=== PATIENT | female | born 1940 | race Caucasian/White ===

== ENCOUNTER 2019-07-14 17:51 | Emergency (ER) | payer MEDICARE, SELFPAY ==
--- NOTE | ~2019-07-14 | XR_ITS ---
XR chest 1V portable DATE: 07/14/2019 19:17 INDICATION: Chest pain, generalized cramping TECHNIQUE: Portable upright AP chest on 07/14/2019 at 1914 hours COMPARISON: 01/17/2018 PA and lateral chest FINDINGS: Probably calcified bilateral breast implants. Bilateral hyperinflation. No pulmonary infiltrate or consolidation is evident. Heart size is within n ormal range. There is aortic calcification and mild tortuosity. No pleural effusion or pulmonary vasc ular congestion or pneumothorax. Surgical clips, right upper quadrant, consistent with cholecystectomy. Osteopenia. Status post anterior cervical spine surgical fusion. IMPRESSION: Bilateral hyperinflation; no active cardiopulmonary disease or significant change since 1 Reviewed, dictated and finalized at location A. IMPRESSION: Bilateral hyperinflation; no active cardiopulmonary disease or sign ificant change since 01/17/2018
[2019-07-14 18:05] VITALS: BP 184/97; PULSE 90; RESP 18; TEMP 36.5; O2SAT 97
[2019-07-14 18:08] VITALS: PULSE 90
[2019-07-14 18:18] LABS: Basophils Percent Auto 0.4 % (0.2-1.2); Eosinophils Absolute Auto 0.1 K/mm3 (0-0.3); Eosinophils Percent Auto 0.8 % (0-4.4); Hematocrit 53.1 % (37.0-47.0); Hemoglobin 17.4 g/dL (12.0-15.0); Immature Granulocyte Absolute 0.03 K/mm3 (0.00-0.031); Immature Granulocyte Percent A 0.3 % (0-0.5); Lymphocytes Absolute Auto 2.58 K/mm3 (0.9-3.2); Lymphocytes Percent Auto 24.2 % (18.3-44.2); Mean Corpuscular HGB Conc 32.8 g/dl (32-36); Mean Corpuscular Hemoglobin 29.3 pg (26-34); Mean Corpuscular Volume 89.4 fl (80-100); Mean Platelet Volume 9.8 fl (7.4-10.4); Monocytes Absolute Auto 0.7 K/mm3 (0.1-0.6); Monocytes Percent Auto 6.2 % (2.6-8.5); Neutrophils Absolute Auto 7.3 K/mm3 (1.3-6.7); Neutrophils Percent Auto 68.1 % (45.5-73.1); Platelet Count Result 244 k/mm3 (150-375); Red Blood Count 5.94 M/mm3 (4.2-5.4); Red Cell Distribution Width 13.2 % (11.5-14.5); White Blood Count 10.7 K/mm3 (4.5-10.0)
[2019-07-14 18:22] LABS: Add Urine Microscopic? YES; Appearance Urine Clear (Clear); Bacteria Urine Trace /hpf; Bilirubin Urine Negative (Negative); Blood Urine Negative (Negative); Color Urine Yellow (Yellow); Glucose Urine UA Negative (Negative); Ketones Urine Negative (Negative); Leukocyte Esterase Ur 2+ LEU/UL (Negative); Mucus Urine Rare /lpf; Nitrate Urine Negative (Negative); Protein Urine 1+ mg/dL (Negative); RBC Urine 0-2 /hpf (0-2); Specific Grav Ur 1.011 (1.001-1.035); Squamous Epithelial Cell Urine Rare /hpf (Few); Urobilinogen Urine Negative mg/dL (<2.0)
[2019-07-14 18:31] LABS: Alanine Aminotransferase 25 U/L (4-35); Albumin Level 5.2 g/dL (3.5-5.1); Alkaline Phosphatase 86 U/L (38-126); Aspartate Amino Transferase 34 U/L (14-36); Bilirubin,Total 0.7 mg/dL (0.2-1.3); Blood Urea Nitrogen 15 mg/dL (7-17); Calcium 9.9 mg/dL (8.4-10.2); Carbon Dioxide 27 mmol/L (22-30); Chloride 102 mmol/L (98-107); Estimated CRCL calculation 37 ml/min; Estimated Glomerular Filt Rate > 60; Glucose 106 mg/dL (65-105); Lipase 288 U/L (23-300); Potassium 4.2 mmol/L (3.4-5.0); Sodium 139 mmol/L (137-145)
--- NOTE | 2019-07-14 18:42 | ED.GENADULT ---
HPI - General Adult General Chief complaint: Abdominal Pain <Hai Stover PA-C - Last Filed: 07/14/19 19:30> Stated complaint: cramping all over <Hai Stover PA-C - Last Filed: 07/14/19 19:30> Time Seen by Provider: 07/14/19 18:09 <Hai Stover PA-C - Last Filed: 07/14/19 19:30> History of Present Illness HPI narrative: Patient is a 78-year-old female who presents to emergency department for evaluation of cramping in the upper extremities and abdomen that began today. Patient notes intermittent cramping. Patient notes that her urine is darker than normal. Patient denies any URI symptoms chest pain dyspnea vomiting diarrhea. On arrival patient resting comfortably in the room in no distress has not taken anything for symptoms <Hai Stover PA-C - Last Filed: 07/14/19 19:30> Related Data Allergies/adverse reactions: Allergies Allergy/AdvReac Type Severity Reaction Status Date / Time tetracycline Allergy Unknown Unknown Verified 07/14/19 18:09 <Hai Stover PA-C - Last Filed: 07/14/19 19:30> Review of Systems Review of Systems: All systems reviewed & are unremarkable except as noted in HPI and below <Hai Stover PA-C - Last Filed: 07/14/19 19:30> [facility] Past Medical History Medical History: Medical History (Updated 07/14/19 @ 19:17 by Hai Stover PA-C) Arthritis <Hai Stover PA-C - Last Filed: 07/14/19 19:30> Family History Family History: Family History (Updated 03/10/17 @ 13:45 by DOCTOR UNKNOWN) Mother Patient's mother is , Onset Age: 87 Sibling Patient's brother is , Onset Age: 67 Father Cerebrovascular accident, Onset Age: 80 <Hai Stover PA-C - Last Filed: 07/14/19 19:30> Social History Social History: Social History Smoking status: Former smoker Smoking end date: 03/20/17 Alcohol intake: never Gender identity (if verbalized by the patient): Female <Hai Stover PA-C - Last Filed: 07/14/19 19:30> Exam Narrative: Exam Narrative: GENERAL: Well-appearing, well-nourished, and in no acute distress. HEAD: Normocephalic, atraumatic. EYES: PERRLA and EOMI. ENT: Nares clear, no rhinorrhea or epistaxis. Mucous membranes moist. NECK: Supple. No adenopathy or masses. CHEST: Clear to auscultation. No respiratory distress. No wheezes rales or rhonchi HEART: Regular rate and rhythm. No murmur heard. Normal peripheral pulses. ABDOMEN: Soft, nontender, nondistended EXTREMITIES: Normal range of motion. No edema. SKIN: Warm, dry, no rash. NEURO: No focal deficits. Alert and oriented x3. Cranial nerves II through XII grossly intact PSYCH: Normal mood and affect. <UDAY Tineo Last Filed: 07/14/19 19:30> Course Course Emergency Course: Patient in the room at this time in no distress aware of case findings treatment plan and diagnosis <UDAY Tineo Last Filed: 07/14/19 19:30> Vital Signs Vital signs: Vital Signs Temperature 97.7 F 07/14/19 18:05 Pulse Rate 90 07/14/19 18:05 Respiratory Rate 18 07/14/19 18:05 Blood Pressure 184/97 H 07/14/19 18:05 Pulse Oximetry 97 07/14/19 18:05 Temperature 97.7 F 07/14/19 18:05 Pulse Rate 71 07/14/19 20:20 Respiratory Rate 21 H 07/14/19 20:20 Blood Pressure 134/78 07/14/19 20:20 Pulse Oximetry 97 07/14/19 20:20 <UDAY Tineo Last Filed: 07/14/19 19:30> Vital Signs Temperature 97.7 F 07/14/19 18:05 Pulse Rate 90 07/14/19 18:05 Respiratory Rate 18 07/14/19 18:05 Blood Pressure 184/97 H 07/14/19 18:05 Pulse Oximetry 97 07/14/19 18:05 Temperature 97.7 F 07/14/19 18:05 Pulse Rate 71 07/14/19 20:20 Respiratory Rate 21 H 07/14/19 20:20 Blood Pressure 134/78 07/14/19 20:20 Pulse Oximetry 97 07/14/19 20:20 <Denise Werner MD
[2019-07-14] MEDS: SODIUM CHLORIDE 0.9% IV 1,000 ML 999 ML IV CONT (19:02)
[2019-07-14 19:50] VITALS: BP 167/70; PULSE 68; RESP 19; O2SAT 96
[2019-07-14 20:20] VITALS: BP 134/78; PULSE 71; RESP 21; O2SAT 97
== END 2019-07-14 20:20 | disposition home or self-care (01) ==
PROVIDERS: Emergency Provider Emergency Medicine; PCP Physician Assistant
DX: N39.0 Urinary tract infection, site not specified (principal); M62.838 Other muscle spasm
CPT/HCPCS: 36415; 71045; 80053; 81001; 83690; 83735; 85025; 87086; 87088; 96365; 96367; 99284; J0131; J0696; J7030

== ENCOUNTER 2019-08-28 10:21 | Emergency (ER) | payer MEDICARE, SELFPAY ==
[2019-08-28] VITALS (8 sets, daily range): BP systolic 114–208; BP diastolic 74–99; PULSE 66–87; RESP 13–18; TEMP 36.6; O2SAT 95–100
--- NOTE | ~2019-08-28 | XR_ITS ---
XR chest 2V 08/28/2019 10:50 Indication: Shortness of breath and cough Procedure: 2 view chest Comparison: Comparison to multiple prior studies sequentially, with oldest reviewed study dated 2017. Findings: Heart size normal. No focal air space disease, pulmonary edema, pleural effusion or suspect ed pneumothorax. There are calcified breast implants. There is atherosclerosis and ectasia of the aor ta. There are cholecystectomy clips. Impression: 1: No acute cardiopulmonary disease. Reviewed, dictated and finalized at location A. Impression: 1: No acute cardiopulmonary disease.
--- NOTE | ~2019-08-28 | CT_ITS ---
EXAMINATION: CTA BRAIN/CAROTID DATE: 08/28/2019 14:18 INDICATION: Head pain behind right ear radiating down the neck. Weakness. TECHNIQUE: Computed tomographic angiography (CTA) of the head and neck was performed with 100 mL Omni paque-350 intravenous contrast. Multiplanar reconstructions and maximum intensity projection 3D-recon structions of the carotid arteries and of the intracranial arteries were created by the technologist on a separate workstation. Precontrast CT of the head was also obtained. Automated exposure control and iterative reconstruction technique were employed.The dose-length product was 1520.58 mGy-cm. COMPARISON: Head CT dated 08/26/2016 FINDINGS: Carotid arteries: There is a small amount of atherosclerotic plaque with 0% stenosis of the right carotid bulb relative to normal distal artery lumen diameter (NASCET criteria). There is 10% stenosis of the left carotid bulb relative to normal distal artery lumen diameter. Mild atherosclerotic plaque at the normal calib er aortic arch. No evident atherosclerotic plaque or stenosis along the extracranial vertebral arteri es. Cervical soft tissues are unremarkable. Mild emphysema. Solidly fused C4-C7 anterior spinal fusio n with anterior plate and screw fixation, C5 corpectomy with interbody strut graft. Bilateral severe upper cervical facet osteoarthritis. Mild central canal stenosis related to a disc extrusion at C3-C4 and due to hypertrophic change at the level of the fused C6-C7 disc space. Moderate disc height loss at C3-C4 and severe disc height loss at C7-T1 and T2-T3 through T4-T5. Head: No acute intracranial hemorrhage, acute infarction or abnormal extra axial fluid collection. There is moderate scattered white matter hypoattenuation consistent with chronic small vessel ischemic diseas e. Ventricles are normal and symmetric. No mass/mass effect. The orbits, paranasal sinuses and mastoi d air cells are normal. No abnormally enhancing lesions identified. Intracranial arteries Small out of atherosclerotic plaque with no hemodynamically significant stenosis in at the left verte bral artery and bilateral carotid siphons. No evident plaque in the right vertebral or basilar arteri es. There are no aneurysms identified. The right P1 and bilateral A1 segments are patent. The left po sterior cerebral artery is supplied via a patent left posterior communicating artery. Cerebral arteri al arborization appears symmetric. IMPRESSION: 1. 0% stenosis of the right carotid bulb relative to normal distal artery lumen diameter (NASCET crit eria). 2. 10% stenosis of the left carotid bulb relative to normal distal artery lumen diameter. 3. Moderate scattered white matter hypoattenuation consistent with chronic small vessel ischemic dise ase. No acute intracranial process. 4. Mild atherosclerotic plaque without hemodynamically significant stenosis at the bilateral carotid siphons and at the left vertebral artery otherwise unremarkable cerebral angiogram. Reviewed, dictated and finalized at location A. IMPRESSION: 1. 0% stenosis of the right carotid bulb relative to normal distal artery lumen diameter (NASCET criteria). 2. 10% stenosis of the left carotid bulb relative to normal distal artery lumen diameter. 3. Moderate scattered white matter hypoattenuation consistent with chronic smal l vessel ischemic disease. No acute intracranial process. 4. Mild atherosclerotic plaque without hemodynamically significant stenosis at the bilateral carotid siphons and at the left vertebral artery otherwise unrema rkable cerebral angiogram.
--- NOTE | 2019-08-28 10:35 | ECG_ITS ---
Measurements Intervals [place] Rate: 71 P: 51 [place]: 162 QRS: -67 QRSD: 105 T: 34 QT: 406 QTc: 444 Interpretive Statements SINUS RHYTHM INCOMPLETE RIGHT BUNDLE BRANCH BLOCK LEFT ANTERIOR FASCICULAR BLOCK BASELINE ARTIFACT- V4 ABNORMAL ECG Electronically Signed On 08-28-2019 11:12:53 CDT by Brad Davis D.O.
[2019-08-28 10:51] LABS: Basophils Percent Auto 0.6 % (0.2-1.2); Eosinophils Absolute Auto 0.2 K/mm3 (0-0.3); Eosinophils Percent Auto 2.3 % (0-4.4); Hematocrit 47.8 % (37.0-47.0); Hemoglobin 15.8 g/dL (12.0-15.0); Immature Granulocyte Absolute 0.02 K/mm3 (0.00-0.031); Immature Granulocyte Percent A 0.3 % (0-0.5); Lymphocytes Absolute Auto 1.44 K/mm3 (0.9-3.2); Lymphocytes Percent Auto 21.8 % (18.3-44.2); Mean Corpuscular HGB Conc 33.1 g/dl (32-36); Mean Corpuscular Hemoglobin 29.6 pg (26-34); Mean Corpuscular Volume 89.5 fl (80-100); Mean Platelet Volume 9.6 fl (7.4-10.4); Monocytes Absolute Auto 0.4 K/mm3 (0.1-0.6); Monocytes Percent Auto 5.7 % (2.6-8.5); Neutrophils Absolute Auto 4.6 K/mm3 (1.3-6.7); Neutrophils Percent Auto 69.3 % (45.5-73.1); Platelet Count Result 224 k/mm3 (150-375); Red Blood Count 5.34 M/mm3 (4.2-5.4); Red Cell Distribution Width 13.2 % (11.5-14.5); White Blood Count 6.6 K/mm3 (4.5-10.0)
--- NOTE | 2019-08-28 10:56 | PC.NURSE ---
PT STATES THAT SHE DOES NOT HAVE A LIST OF HER HOME MEDICATIONS AND DOES NOT KNOW WHAT SHE TAKES.
[2019-08-28 11:04] LABS: Blood Urea Nitrogen 15 mg/dL (7-17); Calcium 9.1 mg/dL (8.4-10.2); Carbon Dioxide 27 mmol/L (22-30); Chloride 106 mmol/L (98-107); Estimated CRCL calculation 46 ml/min; Estimated Glomerular Filt Rate > 60; Glucose 102 mg/dL (65-105); Potassium 4.1 mmol/L (3.4-5.0); Sodium 139 mmol/L (137-145)
--- NOTE | 2019-08-28 11:47 | PC.NURSE ---
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 PT AMBULATED TO THE BATHROOM WITH ASSISTANCE, I INFORMED PT THAT YELLING IS NOT APPROPRIATE, AND THAT WE ARE WORKING QUICKLY POSSIBLE TO GET HER TO THE RESTROOM. PT STATES SHE UNDERSTANDS AND WILL USE THE CALL LIGHT SOONER NEXT TIME. RESTING QUIETLY IN BED, WILL CONTINUE TO MONITOR.
--- NOTE | 2019-08-28 11:55 | PC.NURSE ---
PT UNABLE TO GIVE UA. ASKING FOR MORE TIME.
--- NOTE | 2019-08-28 11:55 | PC.NURSE ---
Called lab to add on Pt INR PTT, d-dimer, Trop I baseline, CMP, BNP.
[2019-08-28 12:10] LABS: Prothrombin Time 12.8 Seconds (11.1-14.7)
[2019-08-28 12:11] LABS: Partial Thromboplastin Time 25.7 SECONDS (22.3-36.8)
[2019-08-28 12:13] LABS: D Dimer 0.38 ug/mL (<0.48)
[2019-08-28 12:20] LABS: Alanine Aminotransferase 14 U/L (4-35); Albumin Level 4.5 g/dL (3.5-5.1); Alkaline Phosphatase 71 U/L (38-126); Aspartate Amino Transferase 26 U/L (14-36); Bilirubin,Total 0.5 mg/dL (0.2-1.3)
[2019-08-28 12:28] LABS: Troponin I < 0.012 ng/mL (0.000-0.034)
[2019-08-28 12:29] LABS: NT Pro B Type Natriuretic Pept 147 PG/ML (5-100)
--- NOTE | 2019-08-28 12:34 | ED.SOB ---
HPI - SOB/Dyspnea General Chief Complaint: Shortness of Breath/Dyspnea <Hai Stover PA-C - Last Filed: 08/28/19 15:28> Stated Complaint: diff breathing <Hai Stover PA-C - Last Filed: 08/28/19 15:28> Time Seen by Provider: 08/28/19 11:18 <Hai Stover PA-C - Last Filed: 08/28/19 15:28> Source: patient <Hai Stover PA-C - Last Filed: 08/28/19 15:28> Mode of arrival: ambulatory <Hai Stover PA-C - Last Filed: 08/28/19 15:28> Limitations: no limitations <Hai Stover PA-C - Last Filed: 08/28/19 15:28> History of Present Illness HPI Narrative: Patient is a 79-year-old female who presents to emergency department for evaluation of shortness of breath right-sided neck pain and generalized myalgias arthralgias for the last 5 days denies injury or trauma does note history of urinary frequency and urgency. Patient lives at home by herself has not taken anything for her symptoms. Patient on arrival resting comfortably in the room denies chest pain vomiting diarrhea fever. Patient denies sick contacts or similar occurrence in the past <Hai Stover PA-C - Last Filed: 08/28/19 15:28> Related Data Allergies/Adverse Reactions: Allergies Allergy/AdvReac Type Severity Reaction Status Date / Time tetracycline Allergy Unknown Unknown Verified 07/14/19 18:09 <Hai Stover PA-C - Last Filed: 08/28/19 15:28> Review of Systems Review of Systems: All systems reviewed & are unremarkable except as noted in HPI and below <Hai Stover PA-C - Last Filed: 08/28/19 15:28> PMF[facility] Past Medical History Medical History: Medical History Arthritis <Hai Stover PA-C - Last Filed: 08/28/19 15:28> Family History Family History: Family History Mother Patient's mother is , Onset Age: 87 Sibling Patient's brother is , Onset Age: 67 Father Cerebrovascular accident, Onset Age: 80 <Hai Stover PA-C - Last Filed: 08/28/19 15:28> Social History Social History: Social History Smoking status: Former smoker Smoking end date: 03/20/17 Alcohol intake: never Gender identity (if verbalized by the patient): Female <Hai Stover PA-C - Last Filed: 08/28/19 15:28> Exam Narrative: Exam Narrative: GENERAL: Well-appearing, well-nourished, and in no acute distress. HEAD: Normocephalic, atraumatic. EYES: PERRLA and EOMI. ENT: Nares clear, no rhinorrhea or epistaxis. Mucous membranes moist. Oropharynx without tonsillar hypertrophy exudate or other lesions. Bilateral TMs pearly brock nonbulging NECK: Supple. No adenopathy or masses. No carotid bruits or JVD CHEST: Clear to auscultation. No respiratory distress. No wheezes rales or rhonchi HEART: Regular rate and rhythm. No murmur heard. Normal peripheral pulses. ABDOMEN: Soft, nontender, nondistended EXTREMITIES: Normal range of motion. No edema. Slight tenderness of the right paraspinal cervical musculature SKIN: Warm, dry, no rash. NEURO: No focal deficits. Alert and oriented x3. Cranial nerves II through XII grossly intact. Normal speech. Normal gait. No meningismus no nuchal rigidity PSYCH: Normal mood and affect. <Hai Stover PA-C - Last Filed: 08/28/19 15:28> Course Course Emergency Course: Patient in the room aware of case findings treatment plan and diagnosis agreeing to follow-up with her primary care doctor for further evaluation of her blood pressure readings and findings in the emergency department patient agreeing with this plan and is aware of the recommendations of her primary care <Hai Stover PA-C - Last Filed: 08/28/19 15:28> Consultations Consultation #1: Discussed case with patient's primary care who would like
[2019-08-28 12:42] LABS: Add Urine Microscopic? NO; Appearance Urine Clear (Clear); Bilirubin Urine Negative (Negative); Blood Urine Negative (Negative); Color Urine Straw (Yellow); Glucose Urine UA Negative (Negative); Ketones Urine Negative (Negative); Leukocyte Esterase Ur Negative LEU/UL (Negative); Nitrate Urine Negative (Negative); Protein Urine Negative (Negative); Specific Grav Ur 1.014 (1.001-1.035); Urobilinogen Urine Negative mg/dL (<2.0)
--- NOTE | 2019-08-28 13:49 | PC.NURSE ---
while in another room, pt yelling out to nurse complaining that we are not doing anything for her neck pain. I explained to pt that she did not need to yell, and that I and the provider had just been in the room speaking with her about the pain, and that I was waiting on ibuprofen to be delivered from pharmacy. pt throwing her hands on the bed, stating that if we are not going to help her then she will just leave, this is ridiculous, you need to address my pain. i reminded pt that we did give her 1G tylenol IVP and a [place], I told pt that I would get pain medication noa. CT then entered room and took pt for scan of head and neck.
--- NOTE | 2019-08-28 14:04 | PC.NURSE ---
PT STILL IN CT, STILL AWAITING MEDICATION FROM PHARMACY, JUSTIN STATES SHE WILL TUBE IT UP.
--- NOTE | 2019-08-28 14:08 | PC.NURSE ---
PT BACK FROM CT, AMBULATED TO BATHROOM, STEADY GAIT. IBUPROFEN HAS ARRIVED FROM PHARMACY AT THIS TIME. AWAITING PT TO FINISH IN BATHROOM AND THEN I WILL MEDICATE PT PER PROVIDER ORDER.
[2019-08-28] MEDS: IBUPROFEN IV 400 MG in SODIUM CHLORIDE 0.9% IV 100 ML 200 MG IVPB (14:10)
--- NOTE | 2019-08-28 14:30 | PC.NURSE ---
PA INFORMED THAT PT IS NOW COMPLAINING OF HEADACHE. NO NEW ORDERS.
[2019-08-28] MEDS: hydrALAZINE HCL 20 MG/ML VIAL 10 MG IV PUSH (14:43)
--- NOTE | 2019-08-28 15:25 | PC.NURSE ---
ERP INFORMED OF PT CURRENT BP AND STILL COMPLAINTS OF TEMPORAL GOMEZ. PA STATES THAT HE HAS READ THE TEST RESULTS, SPOKEN TO THE PRIMARY AND WILL NOT BE GIVING ANY MORE MEDICATIONS. HE IS WORKING ON GETTING PT D/C. NO NEW ORDERS.
--- NOTE | 2019-08-28 15:30 | PC.NURSE ---
I EXPLAINED THAT PA IS PREPARING TO D.C PT, PT IMMEDIATELY BECOMES HOSTILE TOWARDS MYSELF, HOPS OUT OF BED AND THROWS CURTAIN OUT OF HER WAY, CUSSING AT STAFF ABOUT HOW RIDICULOUS THIS FUCKING IS.
[2019-08-28 15:43] LABS: Troponin I < 0.012 ng/mL (0.000-0.034)
== END 2019-08-28 15:39 | disposition home or self-care (01) ==
PROVIDERS: Emergency Medicine Emergency Medical Services; Emergency Provider Emergency Medicine; PCP Physician Assistant
DX: R51 Headache (principal); R03.0 Elevated blood-pressure reading, without diagnosis of hypertension; I45.2 Bifascicular block; M19.90 Unspecified osteoarthritis, unspecified site
CPT/HCPCS: 36415; 70496; 70498; 71046; 80048; 80076; 81003; 83880; 84484; 85025; 85380; 85610; 85730; 93005; 96365; 96375; 99284; A9270; J0131; J0360; Q9967

== ENCOUNTER 2019-10-08 07:37 | Outpatient (CLI) | payer MEDICARE, SELFPAY ==
--- NOTE | ~2019-10-08 | CT_ITS ---
EXAMINATION: CT abdomen pelvis w con DATE: 10/08/2019 08:34 INDICATION: Upper abdominal pain TECHNIQUE: Computed tomography (CT) of the abdomen and pelvis was performed with 100 cc Omnipaque 350 intravenous contrast. Automated exposure control and iterative reconstruction technique were employe d. Exam dose: 204.28 mGy-cm total exam DLP. COMPARISON: 11/08/2016 CT abdomen pelvis. FINDINGS: There is discoid atelectasis and/or scarring of the lower lobes. Normal heart size. No pe ricardial or pleural effusion. Status post cholecystectomy. The common bile duct measures up to 7.8 mm diameter, there is mild intra hepatic bile duct dilatation. The bile duct prominence is likely secondary to cholecystectomy; consi debbie correlation with serum bilirubin level. No hepatic or pancreatic or splenic space occupying mass lesion is detected. There is a left adrenal gland 12 x 13.5 mm mass. There is a similar size right adrenal gland mass. If there is no history of any primary malignancy, these are most likely adrenal adenomas. There is bilateral renal atrophy and mild scarring. Approximately 6.5 mm and 5 mm right renal probable cysts. There is extensive calcification of the abdominal aorta, left renal artery and iliac and femoral german haim. There is mild fusiform dilatation of the infrarenal abdominal aorta but abdominal aortic diamet er is within normal range. No intraperitoneal or retroperitoneal or pelvic mass lesion or adenopathy or ascites. There is diffuse moderate thickening of the urinary bladder. There is a prominent of fecal material in the rectal vault. Diverticulosis of the colon; no CT eviden ce of diverticulitis. No bowel obstruction, bowel wall thickening, pneumatosis or intraperitoneal free air is evident. The appendix is not identified. Diffuse osteopenia. There is degenerative disc disease particularly at L1-2, L2-3, L3-4. No suspiciou s osteolytic or osteoblastic lesions are noted. IMPRESSION: Mild intrahepatic and extra hepatic bile duct dilatation, likely secondary to cholecyste ctomy; consider correlation with serum bilirubin, liver function tests. The bile duct prominence is s table compared to 11/08/2016 Bilateral adrenal masses; in the absence of any known primary malignancy, these are most likely adren al adenomas. These appear unchanged since 11/08/2016 Bilateral left greater than right renal atrophy and mild scarring Small right renal cysts Atherosclerosis Diverticulosis of the colon Multilevel degenerative disc disease of the lumbar spine Reviewed, dictated and finalized at Location A. Reviewed, dictated and finalized at location B. IMPRESSION: Mild intrahepatic and extra hepatic bile duct dilatation, likely s econdary to cholecystectomy; consider correlation with serum bilirubin, liver f unction tests. The bile duct prominence is stable compared to 11/08/2016 Bilateral adrenal masses; in the absence of any known primary malignancy, these are most likely adrenal adenomas. These appear unchanged since 11/08/2016 Bilateral left greater than right renal atrophy and mild scarring Small right renal cysts Atherosclerosis Diverticulosis of the colon Multilevel degenerative disc disease of the lumbar spine
--- NOTE | ~2019-10-08 | XR_ITS ---
XR hip LT min 2V DATE: 10/08/2019 08:09 INDICATION: Left hip pain TECHNIQUE: AP, lateral and cross table lateral views COMPARISON: None FINDINGS: There is chondrocalcinosis of the left hip. No fracture or dislocation, periosteal reactio n or bone destruction. No evidence of avascular necrosis. Left hip joint space is well preserved. There is mild femoral artery calcification. IMPRESSION: Left hip chondrocalcinosis Reviewed, dictated and finalized at location B. IMPRESSION: Left hip chondrocalcinosis
[2019-10-08 08:21] LABS: Estimated Glomerular Filt Rate > 60
[2019-10-08 09:06] LABS: Add Urine Microscopic? NO; Appearance Urine Clear (Clear); Bilirubin Urine Negative (Negative); Blood Urine Negative (Negative); Color Urine Straw (Yellow); Glucose Urine UA Negative (Negative); Ketones Urine Negative (Negative); Leukocyte Esterase Ur Negative LEU/UL (NEGATIVE); Nitrate Urine Negative (Negative); Protein Urine Negative (Negative); Urobilinogen Urine Negative mg/dL (<2.0)
[2019-10-08 09:23] LABS: Alanine Aminotransferase 22 U/L (4-35); Albumin Level 4.3 g/dL (3.5-5.1); Alkaline Phosphatase 76 U/L (38-126); Aspartate Amino Transferase 34 U/L (14-36); Bilirubin,Total 0.7 mg/dL (0.2-1.3); Blood Urea Nitrogen 13 mg/dL (7-17); Carbon Dioxide 30 mmol/L (22-30); Chloride 98 mmol/L (98-107); Cholesterol 207 mg/dL (0-200); Estimated Glomerular Filt Rate > 60; Glucose 105 mg/dL (65-105); HDL Direct 70 mg/dL; Potassium 3.7 mmol/L (3.4-5.0); Sodium 136 mmol/L (137-145); Triglycerides 110 mg/dL (<150)
[2019-10-08 09:25] LABS: Specific Grav Ur 1.045 (1.001-1.035)
[2019-10-08 09:34] LABS: LDL Cholesterol Direct 100 mg/dL
[2019-10-08 09:53] LABS: Rheumatoid Factor < 8.6 IU/ML (<12)
[2019-10-13 04:49] LABS: Albumin 3.7 g/dL (3.8-4.8); Alpha 1 Globulin 0.3 g/dL (0.2-0.3); Alpha 2 Globulin 1.2 g/dL (0.5-0.9); Beta 1 Globulin 0.4 g/dL (0.4-0.6); Gamma Globulin 0.7 g/dL (0.8-1.7); Protein, Total 6.4 g/dL (6.1-8.1)
[2019-10-14 12:22] LABS: Creatinine, Random Urine 44 mg/dL (20-275); Total Protein/Creatinine Ratio 295 mg/g creat (21-161)
== END 2019-10-08 07:38 | disposition home or self-care (01) ==
PROVIDERS: PCP Physician Assistant; Visit Provider Physician Assistant
DX: I70.0 Atherosclerosis of aorta (principal); K57.30 Diverticulosis of large intestine without perforation or abscess without bleeding; M51.36 Other intervertebral disc degeneration, lumbar region; N28.1 Cyst of kidney, acquired; D35.01 Benign neoplasm of right adrenal gland; D35.02 Benign neoplasm of left adrenal gland
CPT/HCPCS: 36415; 73502; 74177; 80048; 80061; 80076; 81003; 82570; 84155; 84156; 84165; 84166; 86430; 87086; 87088; Q9967

== ENCOUNTER 2020-04-13 14:08 | Outpatient (CLI) | payer MEDICARE, SELFPAY ==
[2020-04-13 15:09] LABS: Basophils Percent Auto 0.5 % (0.2-1.2); Eosinophils Absolute Auto 0.1 K/mm3 (0-0.3); Eosinophils Percent Auto 0.8 % (0-4.4); Hematocrit 47.4 % (37.0-47.0); Hemoglobin 15.8 g/dL (12.0-15.0); Immature Granulocyte Absolute 0.02 K/mm3 (0.00-0.031); Immature Granulocyte Percent A 0.3 % (0-0.5); Lymphocytes Absolute Auto 1.44 K/mm3 (0.9-3.2); Lymphocytes Percent Auto 18.7 % (18.3-44.2); Mean Corpuscular HGB Conc 33.3 g/dl (32-36); Mean Corpuscular Hemoglobin 29.6 pg (26-34); Mean Corpuscular Volume 88.9 fl (80-100); Mean Platelet Volume 9.3 fl (7.4-10.4); Monocytes Absolute Auto 0.5 K/mm3 (0.1-0.6); Monocytes Percent Auto 6.5 % (2.6-8.5); Neutrophils Absolute Auto 5.7 K/mm3 (1.3-6.7); Neutrophils Percent Auto 73.2 % (45.5-73.1); Platelet Count Result 268 k/mm3 (150-375); Red Blood Count 5.33 M/mm3 (4.2-5.4); Red Cell Distribution Width 13.3 % (11.5-14.5); White Blood Count 7.7 K/mm3 (4.5-10.0)
[2020-04-13 16:14] LABS: Erythrocyte Sedimentation Rate 1 mm/hr (0-20)
[2020-04-13 16:19] LABS: Alanine Aminotransferase 11 U/L (4-35); Albumin Level 4.3 g/dL (3.5-5.1); Alkaline Phosphatase 85 U/L (38-126); Anion Gap 5 mmol/L (8-16); Aspartate Amino Transferase 24 U/L (14-36); Bilirubin,Total 0.5 mg/dL (0.2-1.3); Blood Urea Nitrogen 8 mg/dL (7-17); CRP < 0.5 mg/dL (<1.0); Calcium 9.2 mg/dL (8.4-10.2); Carbon Dioxide 31 mmol/L (22-30); Chloride 103 mmol/L (98-107); Estimated Glomerular Filt Rate > 60; Glucose 102 mg/dL (65-105); Sodium 139 mmol/L (137-145); Uric Acid 4.2 mg/dL (2.5-7.5)
[2020-04-13 16:41] LABS: Rheumatoid Factor < 8.6 IU/ML (<12)
[2020-04-15 22:01] LABS: Anti Cyclic Citrullinated Pept <16 Units (<20)
[2020-04-16 12:25] LABS: SS-A <1.0; SS-B <1.0
== END 2020-04-13 14:09 | disposition home or self-care (01) ==
LOC: ANHLAB 14:16
PROVIDERS: PCP Physician Assistant; Visit Provider Physician Assistant
DX: M25.50 Pain in unspecified joint (principal)
CPT/HCPCS: 36415; 80048; 80076; 84550; 85025; 85652; 86038; 86140; 86200; 86225; 86235; 86430

== ENCOUNTER 2020-05-07 15:56 | Outpatient (CLI) | payer MEDICARE, SELFPAY ==
--- NOTE | ~2020-05-07 | XR_ITS ---
XR hand LT min 3V DATE: 05/07/2020 16:56 INDICATION: Left hand pain for 5 years. No injury. TECHNIQUE: 3 views COMPARISON: 08/01/2017 left hand FINDINGS: Triangular cartilage chondrocalcinosis. Diffuse osteopenia. Severe osteoarthritic change at the first carpometacarpal joint. There is osteoarthritis at multiple interphalangeal joints. No fracture, dislocation, periosteal reaction or bone destruction. 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 ERY STOCKER IMPRESSION: Polyarticular osteoarthritis, most severe at the first carpometacar pal joint Diffuse osteopenia Chondrocalcinosis at the triangular cartilage Little interval change since 07/22/2017
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
--- NOTE | ~2020-05-07 | XR_ITS ---
XR hand RT min 3V DATE: 05/07/2020 16:57 INDICATION: Right hand pain TECHNIQUE: AP, oblique and lateral views. COMPARISON: 07/30/2017 right hand FINDINGS: Diffuse osteopenia. There is severe hypertrophic osteoarthritic change at the first carpometacarpal joint. Moderately sev ere osteoarthritic changes also noted at the second and third metacarpophalangeal joints. There is osteoarthritic arthritis at the interphalangeal joints, particularly at the interphalangeal joint of the first digit and distal interphalangeal joints, particularly the second and fifth distal interphalangeal joints. Some subarticular cystic change of the head of the middle phalanx is noted si nce 08/01/2017. No fracture, dislocation, periosteal reaction or bone destruction. IMPRESSION: Diffuse osseous. Polyarticular osteoarthritis; interval subchondral cystic change of the head of the middle phalanx of the fifth digit since 08/01/2017 Reviewed, dictated and finalized at location B. MOLOGY TEACHER
== END 2020-05-07 15:57 | disposition home or self-care (01) ==
PROVIDERS: PCP Physician Assistant; Visit Provider Physician Assistant
DX: M79.641 Pain in right hand (principal); M79.642 Pain in left hand; M54.6 Pain in thoracic spine; Z98.1 Arthrodesis status; M41.84 Other forms of scoliosis, thoracic region; M19.042 Primary osteoarthritis, left hand; M19.041 Primary osteoarthritis, right hand; M85.89 Other specified disorders of bone density and structure, multiple sites; M11.242 Other chondrocalcinosis, left hand
CPT/HCPCS: 72072; 73130

== ENCOUNTER 2020-05-25 16:36 | Outpatient (CLI) | payer MEDICARE, SELFPAY | END 2020-05-25 16:37 | disposition home or self-care (01) | LOC: ANHCOVIDVC 16:36 | PROVIDERS: PCP Physician Assistant | DX: Z23 Encounter for immunization (principal) | CPT/HCPCS: 0001A; 91300 ==

== ENCOUNTER 2020-06-15 17:19 | Outpatient (CLI) | payer MEDICARE, SELFPAY | END 2020-06-15 17:20 | disposition home or self-care (01) | LOC: ANHCOVIDVC 17:19 | PROVIDERS: PCP Physician Assistant | DX: Z23 Encounter for immunization (principal) | CPT/HCPCS: 0002A; 91300 ==

== ENCOUNTER 2020-08-17 15:37 | Emergency (ER) | payer MEDICARE, SELFPAY ==
--- NOTE | ~2020-08-17 | XR_ITS ---
XR finger 4th RT min 2V 08/17/2020 16:56 Indication: Right fourth finger pain Procedure: 3 views right fourth finger Comparison: 05/07/2020 Findings: There is a nondisplaced tuft fracture right fourth distal phalanx. There is moderate polyar ticular osteoarthritis. Moderate soft tissue swelling overlying the distal phalanx. Stable ossific fr agment adjacent to the PIP joint. Osteopenia. Impression: 1: Nondisplaced tuft fracture right fourth distal phalanx. Reviewed, dictated and finalized at location A. Impression: 1: Nondisplaced tuft fracture right fourth distal phalanx.
[2020-08-17 16:09] VITALS: BP 154/89; PULSE 87; RESP 16; TEMP 36.4; O2SAT 95
--- NOTE | 2020-08-17 17:49 | ED.WOUNDLAC ---
HPI - Wound/Laceration General Chief Complaint: Wound/Laceration Stated Complaint: LACERATION FINGER Time Seen by Provider: 08/17/20 17:07 Source: patient Mode of arrival: ambulatory Limitations: no limitations History of Present Illness HPI narrative: This is a 80-year-old female that presents to the emergency department for laceration to right fourth finger sustained just prior to arrival. Reports she was working on a car and sustained a laceration. Is unsure what exactly she cut the finger on. She reports she is up-to-date on tetanus. Denies decreased range of motion or numbness. Related Data Allergies Allergy/AdvReac Type Severity Reaction Status Date / Time tetracycline Allergy Unknown Unknown Verified 04/29/20 13:16 Review of Systems Review of Systems: Narrative: CONSTITUTIONAL: Denies fever SKIN: Reports laceration MUSCULOSKELETAL: Denies joint pain, or myalgia. NEUROLOGIC: Denies numbness All systems reviewed & are unremarkable except as noted in HPI and below PMFSH Past Medical History Medical History (Updated 08/17/20 @ 20:17 by Esperanza Brambila PA-C) Arthritis Chronic obstructive pulmonary disease Essential (primary) hypertension MDD (major depressive disorder), recurrent episode, moderate Mixed hyperlipidemia Family History Family History Mother Patient's mother is , Onset Age: 87 Sibling Patient's brother is , Onset Age: 67 Father Cerebrovascular accident, Onset Age: 80 Social History Social History Smoking status: Former smoker Smoking end date: 03/20/17 Alcohol intake: never Gender identity (if verbalized by the patient): Female Exam Narrative: Exam Narrative: GENERAL: Well-appearing, well-nourished, and in no acute distress. HEAD: Normocephalic, atraumatic. EYES: EOMI. EXTREMITIES: Normal range of motion. Mild edema with bruising about the right fourth finger distal phalanx. 3 cm linear laceration into subcutaneous tissue over distal phalanx palmar surface. Nail is intact. Normal sensation. Normal radial pulses SKIN: Warm, dry, no rash. NEURO: No focal deficits. Alert and oriented x3. PSYCH: Normal mood and affect Course Vital Signs Vital signs: Vital Signs Temperature 97.6 F 08/17/20 16:09 Pulse Rate 87 08/17/20 16:09 Respiratory Rate 16 08/17/20 16:09 Blood Pressure 154/89 H 08/17/20 16:09 Pulse Oximetry 95 08/17/20 16:09 Temperature 97.6 F 08/17/20 16:09 Pulse Rate 77 08/17/20 19:13 Respiratory Rate 18 08/17/20 19:13 Blood Pressure 150/87 H 08/17/20 19:13 Pulse Oximetry 100 08/17/20 19:13 Procedures Laceration Laceration 1: Date: 08/17/20 Time: 20:30 Site: hand Side (If applicable): right Size (cm): 3 Description: linear Depth: simple, single layer Local Anesthetic: lidocaine 1% Amount of anesthesia used (mL): 3 Pre-repair: irrigated ====== Skin Level ====== Skin layer closed with: nylon Size (cm): 4-0 Number of sutures: 4 Technique: simple, interrupted ====== Subcutaneous Layer ====== ====== Muscle Layer ====== ====== Tendon Layer ====== Orthopedic Splinting/Casting Injury #1: Splinting/Casting Date: 08/17/20 Splinting/Casting Time: 20:32 Side: right Upper Extremity Injury Location: finger Splint: prefabricated Pre-Formed: metal foam finger splint Pre-Procedure Neuro Vascular Exam: normal Post-Procedure Neuro Vascular Exam: normal MDM - Wound/Laceration MDM Narrative Medical decision making narrative: Patient presents to the emergency department for right fourth finger injury sustained just prior to arrival. She is neurovascularly intact. She is up-to-date on tetanus. Wound was irrigated and closed with howard
[2020-08-17] MEDS: ceFAZolin SODIUM 1 GM VIAL IM (18:07)
[2020-08-17 19:13] VITALS: BP 150/87; PULSE 77; RESP 18; O2SAT 100
== END 2020-08-17 21:03 | disposition home or self-care (01) ==
PROVIDERS: Emergency Provider Emergency Medicine; PCP Physician Assistant
DX: S61.214A Laceration without foreign body of right ring finger without damage to nail, initial encounter (principal); S62.664A Nondisplaced fracture of distal phalanx of right ring finger, initial encounter for closed fracture; M19.90 Unspecified osteoarthritis, unspecified site; J44.9 Chronic obstructive pulmonary disease, unspecified; I10 Essential (primary) hypertension; E78.2 Mixed hyperlipidemia; Z87.891 Personal history of nicotine dependence; W26.9XXA Contact with unspecified sharp object(s), initial encounter
CPT/HCPCS: 12002; 29130; 73140; 96372; 99283; 99284; J0690

== ENCOUNTER 2020-08-27 12:57 | Emergency (ER) | payer MEDICARE, SELFPAY ==
--- NOTE | ~2020-08-27 | XR_ITS ---
XR chest 2V 08/27/2020 15:11 Indication: Generalized weakness. Hypertension. Procedure: 2 view chest Comparison: Comparison to multiple prior studies sequentially, with oldest reviewed study dated 12/02. Findings: There are calcified bilateral breast implants. There is atherosclerosis of the aorta. The l ungs are hyperinflated which is consistent with, but not diagnostic of chronic obstructive pulmonary disease. No focal air space disease, pulmonary edema, pleural effusion or suspected pneumothorax. Impression: 1: No acute cardiopulmonary disease. Reviewed, dictated and finalized at location B. Impression: 1: No acute cardiopulmonary disease.
[2020-08-27 13:01] VITALS: BP 106/55; PULSE 62; RESP 16; TEMP 36.8; O2SAT 98
--- NOTE | 2020-08-27 13:01 | ECG_ITS ---
Measurements Intervals [place] Rate: 63 P: 50 [place]: 176 QRS: -57 QRSD: 98 T: 38 QT: 405 QTc: 417 Interpretive Statements SINUS RHYTHM LEFT AXIS DEVIATION INCOMPLETE RIGHT BUNDLE BRANCH BLOCK BORDERLINE R WAVE PROGRESSION, ANTERIOR LEADS CONSIDER INFERIOR INFARCT, AGE INDETERMINATE BASELINE ARTIFACT- I, II, III ABNORMAL ECG Electronically Signed On 08-27-2020 13:52:23 CDT by Brad Davis D.O.
[2020-08-27 13:11] LABS: Basophils Percent Auto 0.3 % (0.2-1.2); Eosinophils Absolute Auto 0.1 K/mm3 (0-0.3); Eosinophils Percent Auto 1.2 % (0-4.4); Hematocrit 44.4 % (37.0-47.0); Hemoglobin 14.2 g/dL (12.0-15.0); Immature Granulocyte Absolute 0.01 K/mm3 (0.00-0.031); Immature Granulocyte Percent A 0.1 % (0-0.5); Lymphocytes Absolute Auto 1.48 K/mm3 (0.9-3.2); Mean Corpuscular Hemoglobin 29.2 pg (26-34); Mean Corpuscular Volume 91.4 fl (80-100); Monocytes Absolute Auto 0.4 K/mm3 (0.1-0.6); Monocytes Percent Auto 6.2 % (2.6-8.5); Neutrophils Absolute Auto 4.7 K/mm3 (1.3-6.7); Neutrophils Percent Auto 70.2 % (45.5-73.1); Platelet Count Result 233 k/mm3 (150-375); Red Blood Count 4.86 M/mm3 (4.2-5.4); Red Cell Distribution Width 14.1 % (11.5-14.5); White Blood Count 6.7 K/mm3 (4.5-10.0)
[2020-08-27 13:23] LABS: Alanine Aminotransferase 11 U/L (4-35); Albumin Level 3.9 g/dL (3.5-5.1); Alkaline Phosphatase 56 U/L (38-126); Anion Gap 8 mmol/L (8-16); Aspartate Amino Transferase 21 U/L (14-36); Bilirubin,Total 0.5 mg/dL (0.2-1.3); Blood Urea Nitrogen 12 mg/dL (7-17); Calcium 8.8 mg/dL (8.4-10.2); Carbon Dioxide 27 mmol/L (22-30); Chloride 107 mmol/L (98-107); Estimated CRCL calculation 34 ml/min; Estimated Glomerular Filt Rate > 60; Glucose 107 mg/dL (65-105); Potassium 4.1 mmol/L (3.4-5.0); Sodium 142 mmol/L (137-145)
[2020-08-27 14:52] VITALS: BP 157/93; PULSE 66; RESP 19; O2SAT 100
--- NOTE | 2020-08-27 15:06 | ED.GENADULT ---
HPI - General Adult General Chief complaint: Weakness Stated complaint: I'M WEAK, I DON'T FEEL GOOD Time Seen by Provider: 08/27/20 14:51 History of Present Illness HPI narrative: Patient is a 80-year-old female who presents ER with feeling weak. Reports she went from sitting to standing and got lightheaded today. No nausea or vomiting. No rotational/spinning dizziness. No focal weakness in arm or leg. Lasted for several minutes and resolved. She did have some intermittent dizziness with turning her head. Reports eating and drinking normally. No focal weakness. She has no urinary symptoms. Reports she became anxious and just felt something was wrong and went to be evaluated. Related Data Allergies Allergy/AdvReac Type Severity Reaction Status Date / Time tetracycline Allergy Unknown Unknown Verified 08/27/20 14:58 Review of Systems Review of Systems: All systems reviewed & are unremarkable except as noted in HPI and below Constitutional: Constitutional: Denies chills, Denies fever(s) and Reports weakness ENT: Denies nasal congestion and Denies sore throat Cardiovascular: Cardiovascular: Denies chest pain, Denies rapid heart rate and Denies radiating jaw, neck or arm pain Respiratory: Respiratory: Denies cough and Denies dyspnea Gastrointestinal: Gastrointestinal: Denies abdominal pain, Denies nausea and Denies vomiting Psychiatric: Psychiatric: Reports anxiety and Denies depression PMFSH Past Medical History Medical History (Updated 08/27/20 @ 16:34 by Franc Gant MD) Arthritis Chronic obstructive pulmonary disease Essential (primary) hypertension MDD (major depressive disorder), recurrent episode, moderate Mixed hyperlipidemia Family History Family History Mother Patient's mother is , Onset Age: 87 Sibling Patient's brother is , Onset Age: 67 Father Cerebrovascular accident, Onset Age: 80 Social History Social History Smoking status: Former smoker Smoking end date: 03/20/17 Alcohol intake: never Gender identity (if verbalized by the patient): Female Exam Narrative: Exam Narrative: GENERAL: Well-appearing, well-nourished, and in no acute distress. HEAD: Normocephalic, atraumatic. ENT: TMs normal bilaterally. CHEST: Clear to auscultation. No respiratory distress. HEART: Regular rate and rhythm. Normal peripheral pulses. ABDOMEN: Soft, nontender, nondistended, normal active bowel sounds. EXTREMITIES: Normal range of motion. No edema. NEURO: No focal deficits. Clear speech. Alert and oriented x3. PSYCH: Normal mood and affect. Course Course Emergency Course: Patient informed results. Will treat urine given patient's symptoms. Discharge home. Vital Signs Vital signs: Vital Signs Temperature 98.2 F 08/27/20 13:01 Pulse Rate 62 08/27/20 13:01 Respiratory Rate 16 08/27/20 13:01 Blood Pressure 106/55 L 08/27/20 13:01 Pulse Oximetry 98 08/27/20 13:01 Temperature 98.2 F 08/27/20 13:01 Pulse Rate 66 08/27/20 14:52 Respiratory Rate 19 08/27/20 14:52 Blood Pressure 157/93 H 08/27/20 14:52 Pulse Oximetry 100 08/27/20 14:52 Medical Decision Making Vital Signs Vital Signs: Vital Signs Temperature 98.2 F 08/27/20 13:01 Pulse Rate 62 08/27/20 13:01 Respiratory Rate 16 08/27/20 13:01 Blood Pressure 106/55 L 08/27/20 13:01 Pulse Oximetry 98 08/27/20 13:01 Temperature 98.2 F 08/27/20 13:01 Pulse Rate 66 08/27/20 14:52 Respiratory Rate 19 08/27/20 14:52 Blood Pressure 157/93 H 08/27/20 14:52 Pulse Oximetry 100 08/27/20 14:52 Lab Data Result diagrams: 08/27/20 13:05 08/27/20 13:05 Labs: Lab Results 08/27/20 08/27/20 08/27/20 Range/Units 13:05 13:05 16:02 WBC 6.7 (4.5-10.0) K/mm3 RBC 4.86 (4.2-5.4) M/mm3 Hgb 14.2
[2020-08-27 16:15] LABS: Add Urine Microscopic? YES; Appearance Urine Clear (Clear); Bilirubin Urine Negative (Negative); Blood Urine Negative (Negative); Color Urine Yellow (Yellow); Glucose Urine UA Negative (Negative); Ketones Urine Negative (Negative); Leukocyte Esterase Ur 1+ LEU/UL (Negative); Mucus Urine Rare /lpf; Nitrate Urine Negative (Negative); Protein Urine 2+ mg/dL (Negative); RBC Urine 0-2 /hpf (0-2); Specific Grav Ur 1.025 (1.001-1.035); Squamous Epithelial Cell Urine Occasional /hpf (Few); Urobilinogen Urine Negative mg/dL (<2.0)
[2020-08-27 16:49] VITALS: BP 138/95; PULSE 82; RESP 16; O2SAT 98
== END 2020-08-27 16:48 | disposition home or self-care (01) ==
PROVIDERS: Emergency Provider Emergency Medicine; PCP Physician Assistant
DX: N39.0 Urinary tract infection, site not specified (principal); M19.90 Unspecified osteoarthritis, unspecified site; J44.9 Chronic obstructive pulmonary disease, unspecified; I10 Essential (primary) hypertension; E78.2 Mixed hyperlipidemia; I45.10 Unspecified right bundle-branch block; R94.31 Abnormal electrocardiogram [ECG] [EKG]
CPT/HCPCS: 36415; 71046; 80053; 81001; 85025; 87086; 93005; 99283

== ENCOUNTER 2021-01-08 06:50 | Emergency (ER) | payer MEDICARE, SELFPAY ==
--- NOTE | ~2021-01-08 | XR_ITS ---
EXAMINATION: XR wrist RT min 3V DATE: 01/08/2021 07:41 INDICATION: Radial sided right wrist pain. TECHNIQUE: 4 views of right wrist were obtained. COMPARISON: Right hand radiographs 05/07/2020 FINDINGS: There is chronic radial subluxation of second and third distal phalanges with respect to th e middle phalanges. No fracture. There is diffuse osteopenia. There is severe osteoarthritis of first carpometacarpal joint, first interphalangeal joint, and second, third, fourth, and fifth distal inte rphalangeal joints. There is mild osteoarthritis of many of the metacarpophalangeal joints and proxim al interphalangeal joints. IMPRESSION: 1. Polyarticular osteoarthritis. Reviewed, dictated and finalized at location A.
[2021-01-08 06:55] VITALS: BP 121/71; PULSE 68; RESP 18; TEMP 36.7; O2SAT 95
--- NOTE | 2021-01-08 07:37 | ED.UPPEXIN ---
HPI - Extremity Injury (Upper) General Chief Complaint: Extremity Injury, Upper Stated Complaint: right wrist injury x 3 days ago Time Seen by Provider: 01/08/21 07:04 Source: patient and RN notes reviewed Mode of arrival: ambulatory Limitations: no limitations History of Present Illness HPI narrative: This is a 80 year old female with history of arthritis who presents for evaluation of right wrist pain. She reports pain for 3 days. She has swelling and tenderness. She denies any trauma. Pain is worse with movement. She has been wearing a wrist brace for comfort. She states she has not taken any of her medication today. Related Data Allergies Allergy/AdvReac Type Severity Reaction Status Date / Time tetracycline Allergy Unknown Unknown Verified 01/08/21 07:04 Review of Systems Review of Systems: All systems reviewed & are unremarkable except as noted in HPI and below PMFSH Past Medical History Medical History Arthritis Chronic obstructive pulmonary disease Erosive osteoarthritis of hands, bilateral Essential (primary) hypertension MDD (major depressive disorder), recurrent episode, moderate Mixed hyperlipidemia Family History Family History Mother Patient's mother is , Onset Age: 87 Sibling Patient's brother is , Onset Age: 67 Father Cerebrovascular accident, Onset Age: 80 Social History Social History Smoking status: Former smoker Smoking end date: 03/20/17 Alcohol intake: never Gender identity (if verbalized by the patient): Female Exam Const: General: alert Nutritional Appearance: thin Orientation/consciousness: patient oriented x3 Eyes: EOM: EOMs intact bilaterally Resp: Effort & Inspection: normal respiratory effort Skin: General skin exam: normal color Rashes: no rashes Neuro: General: patient oriented x3, moves all extremities and CN's II-XI intact bilaterally Gait exam (Neuro): Normal gait present Extrem: Other: right wrist with mild swelling, deformity, hands with deformity. TTP dorsal wrist, no erythema, strong palpable radial pulse, pain with ROM Psych: Mental Status: mental status grossly normal Affect: normal affect Course Reevaluation(s) Reevaluation #1: Patient states she normally takes tylenol # 3 but she ran out a few days ago. She states she is looking for PCP. Her pain is likely related to her chronic arthritis. Date: 01/08/21 Time: 08:34 Vital Signs Vital signs: Vital Signs Temperature 98.1 F 01/08/21 06:55 Pulse Rate 68 01/08/21 06:55 Respiratory Rate 18 01/08/21 06:55 Blood Pressure 121/71 01/08/21 06:55 Pulse Oximetry 95 01/08/21 06:55 Temperature 98.1 F 01/08/21 06:55 Pulse Rate 59 L 01/08/21 08:51 Respiratory Rate 18 01/08/21 08:51 Blood Pressure 164/48 H 01/08/21 08:51 Pulse Oximetry 97 01/08/21 08:51 MDM - Extremity Injury (Upper) Lab Data Attestation: I reviewed the patient's lab results. Result diagrams: 01/08/21 07:37 Labs: Lab Results 01/08/21 01/08/21 Range/Units 07:37 07:37 Sodium 138 (137-145) mmol/L Potassium 4.1 (3.4-5.0) mmol/L Chloride 104 (98-107) mmol/L Carbon Dioxide 28 (22-30) mmol/L Anion Gap 6 L (8-16) mmol/L BUN 14 (7-17) mg/dL Creatinine 0.80 (0.7-1.0) mg/dL Estim Creat Clear Calc Not Reportable Estimated GFR > 60 (59 - ) Glucose 121 H (65-110) mg/dL Uric Acid 4.9 (2.5-7.5) mg/dL Calcium 9.3 (8.4-10.2) mg/dL Imaging Data Radiologist's impression: ITS Impressions Wrist X-Ray 01/08/21 07:49 IMPRESSION: 1. Polyarticular osteoarthritis. Discharge Plan Discharge Clinical Impression: Arthritis of right wrist Patient Disposition: Home, Self-Care Condition: Stable Inst
[2021-01-08] MEDS: INDOMETHACIN 25 MG CAPSULE PO (07:50)
[2021-01-08] MEDS: GABAPENTIN 400 MG CAPSULE 800 MG PO (07:50)
[2021-01-08 08:00] LABS: Anion Gap 6 mmol/L (8-16); Blood Urea Nitrogen 14 mg/dL (7-17); Calcium 9.3 mg/dL (8.4-10.2); Carbon Dioxide 28 mmol/L (22-30); Chloride 104 mmol/L (98-107); Estimated Glomerular Filt Rate > 60; Glucose 121 mg/dL (65-110); Potassium 4.1 mmol/L (3.4-5.0); Sodium 138 mmol/L (137-145); Uric Acid 4.9 mg/dL (2.5-7.5)
[2021-01-08] MEDS: ACETAMINOPHEN/CODEINE (*CRX) 300/30 MG TABLET 1 TAB PO (08:44)
[2021-01-08 08:51] VITALS: BP 164/48; PULSE 59; RESP 18; O2SAT 97
== END 2021-01-08 08:52 | disposition home or self-care (01) ==
PROVIDERS: Emergency Provider General Practice
DX: M15.4 Erosive (osteo)arthritis (principal); J44.9 Chronic obstructive pulmonary disease, unspecified; E78.2 Mixed hyperlipidemia; I10 Essential (primary) hypertension; Z87.891 Personal history of nicotine dependence
CPT/HCPCS: 36415; 73110; 80048; 84550; 99283; A9270

== ENCOUNTER 2021-07-25 10:27 | Emergency (ER) | payer MEDICARE, SELFPAY ==
--- NOTE | ~2021-07-25 | XR_ITS ---
EXAMINATION: XR chest 2V DATE: 07/25/2021 11:16 INDICATION: Weight loss TECHNIQUE: Frontal and lateral views of the chest are obtained COMPARISON: 08/27/2020 FINDINGS: The lungs are free of acute opacities. There is no pleural effusion or pneumothorax. The ca rdiomediastinal silhouette is normal. There is severe thoracic spondylosis. Calcified breast implants are noted. There are changes of anterior fusion in the lower cervical spine. IMPRESSION: 1. No acute cardiopulmonary abnormality. Reviewed, dictated and finalized at location A.
[2021-07-25 10:39] VITALS: BP 159/90; PULSE 88; RESP 16; TEMP 36.6; O2SAT 97
[2021-07-25 11:23] VITALS: BP 159/95; PULSE 71; RESP 18; O2SAT 98
[2021-07-25 11:35] LABS: Basophils Absolute Auto 0.1 K/mm3 (0.0-0.1); Basophils Percent Auto 0.7 % (0.2-1.2); Eosinophils Absolute Auto 0.1 K/mm3 (0-0.3); Eosinophils Percent Auto 1.1 % (0-4.4); Hemoglobin 16.4 g/dL (12.0-15.0); Immature Granulocyte Absolute 0.03 K/mm3 (0.00-0.031); Immature Granulocyte Percent A 0.4 % (0-0.5); Lymphocytes Absolute Auto 1.47 K/mm3 (0.9-3.2); Lymphocytes Percent Auto 20.8 % (18.3-44.2); Mean Corpuscular HGB Conc 33.5 g/dl (32-36); Mean Corpuscular Hemoglobin 29.8 pg (26-34); Mean Corpuscular Volume 89.1 fl (80-100); Mean Platelet Volume 9.5 fl (7.4-10.4); Monocytes Absolute Auto 0.4 K/mm3 (0.1-0.6); Monocytes Percent Auto 5.1 % (2.6-8.5); Neutrophils Absolute Auto 5.1 K/mm3 (1.3-6.7); Neutrophils Percent Auto 71.9 % (45.5-73.1); Platelet Count Result 296 k/mm3 (150-375); Red Cell Distribution Width 13.2 % (11.5-14.5); White Blood Count 7.1 K/mm3 (4.5-10.0)
[2021-07-25 11:46] LABS: Alanine Aminotransferase 11 U/L (6-35); Albumin Level 4.9 g/dL (3.5-5.1); Alkaline Phosphatase 83 U/L (38-126); Anion Gap 7 mmol/L (8-16); Aspartate Amino Transferase 26 U/L (14-36); Bilirubin,Total 0.5 mg/dL (0.2-1.3); Blood Urea Nitrogen 8 mg/dL (7-17); Calcium 9.2 mg/dL (8.4-10.2); Carbon Dioxide 28 mmol/L (22-30); Chloride 103 mmol/L (98-107); Estimated CRCL calculation 45 ml/min; Estimated Glomerular Filt Rate > 60; Glucose 89 mg/dL (65-110); Potassium 4.2 mmol/L (3.4-5.0); Sodium 138 mmol/L (137-145)
--- NOTE | 2021-07-25 12:06 | ED.GENADULT ---
HPI - General Adult General Chief complaint: Unspecified Stated complaint: wt. loss Time Seen by Provider: 07/25/21 10:47 Source: patient Mode of arrival: ambulatory History of Present Illness HPI narrative: 80 year old female presents today with complaints of weight loss states at least 30 lbs over the last couple months but she is not sure. She is going by her pants not fitting. Patient has not other complaints than weight loss. Denies chest pain, sob, bone pain, abnormal bm, and is not sure who her primary is. She is unsure of when the last time she saw her primary. She is not sure when her last mamogram was or colonoscopy. Related Data Allergies Allergy/AdvReac Type Severity Reaction Status Date / Time tetracycline Allergy Unknown Unknown Verified 01/08/21 07:04 Review of Systems Review of Systems: CONSTITUTIONAL: Weight loss. Denies fever, chills, or sweats. EYES: Denies visual changes, redness, or discharge. ENT: Denies rhinorrhea, congestion, sore throat, or otalgia. CARDIOVASCULAR: Denies chest pain, palpitations, or edema. RESPIRATORY: Denies cough or dyspnea. GASTROINTESTINAL: Denies abdominal pain, nausea, vomiting, or diarrhea. GENITOURINARY: Denies dysuria or hematuria. SKIN: Denies rash or itching. MUSCULOSKELETAL: Denies back pain, joint pain, or myalgia. NEUROLOGIC: Denies headache, numbness, dizziness, or weakness. PSYCHIATRIC: Denies anxiety or depression. PMFSH Past Medical History Medical History Arthritis Chronic obstructive pulmonary disease Erosive osteoarthritis of hands, bilateral Essential (primary) hypertension MDD (major depressive disorder), recurrent episode, moderate Mixed hyperlipidemia Family History Family History Mother Patient's mother is , Onset Age: 87 Sibling Patient's brother is , Onset Age: 67 Father Cerebrovascular accident, Onset Age: 80 Social History Social History Smoking status: Former smoker Smoking end date: 03/20/17 Alcohol intake: never Gender identity (if verbalized by the patient): Female Exam Narrative: GENERAL: Well-appearing, well-nourished, and in no acute distress. HEAD: Normocephalic, atraumatic. EYES: PERRLA and EOMI. ENT: Nares clear, no rhinorrhea or epistaxis. Mucous membranes moist. Oropharynx without tonsillar hypertrophy exudate or other lesions. Bilateral TMs pearly brock nonbulging NECK: Supple. No adenopathy or masses. No carotid bruits or JVD CHEST: Clear to auscultation. No respiratory distress. No wheezes rales or rhonchi HEART: Regular rate and rhythm. No murmur heard. Normal peripheral pulses. ABDOMEN: Soft, nontender, nondistended, normal active bowel sounds. EXTREMITIES: Normal range of motion. No edema. SKIN: Warm, dry, no rash. NEURO: No focal deficits. Alert and oriented x3. PSYCH: Normal mood and affect. Course Vital Signs Vital signs: Vital Signs Temperature 36.6 C 07/25/21 10:39 Pulse Rate 88 07/25/21 10:39 Respiratory Rate 16 07/25/21 10:39 Blood Pressure 159/90 H 07/25/21 10:39 Pulse Oximetry 97 07/25/21 10:39 Temperature 36.6 C 07/25/21 10:39 Pulse Rate 80 07/25/21 13:03 Respiratory Rate 16 07/25/21 13:03 Blood Pressure 124/78 07/25/21 13:03 Pulse Oximetry 98 07/25/21 13:03 Medical Decision Making MDM Narrative Medical decision making narrative: HPI as noted. Patient without any symptomatic complaints except for weight loss. Last weight documented in this computer approximately 1 year ago was about 42 kg. Patient currently is documented to weigh 62 kg. Patient states she has lost at least 20 to 30 pounds over the last couple months. States her pants are very loose at this time. Patient with concerns of cancer. Patient denies shortness of breath cough mauricio
[2021-07-25 12:13] VITALS: PULSE 76; RESP 20; O2SAT 98
[2021-07-25 13:03] VITALS: BP 124/78; PULSE 80; RESP 16; O2SAT 98
== END 2021-07-25 13:04 | disposition home or self-care (01) ==
PROVIDERS: Emergency Provider Nurse Practitioner Family; PCP Family Medicine
DX: R63.4 Abnormal weight loss (principal); J44.9 Chronic obstructive pulmonary disease, unspecified; I10 Essential (primary) hypertension; E78.2 Mixed hyperlipidemia; M15.4 Erosive (osteo)arthritis; F17.200 Nicotine dependence, unspecified, uncomplicated; F33.9 Major depressive disorder, recurrent, unspecified; Z68.25 Body mass index [BMI] 25.0-25.9, adult
CPT/HCPCS: 36415; 71046; 80053; 84443; 85025; 99283

== ENCOUNTER 2021-08-02 10:01 | Emergency (ER) | payer MEDICARE, SELFPAY ==
[2021-08-02 10:36] VITALS: BP 147/94; PULSE 70; RESP 16; TEMP 36.5; O2SAT 97
--- NOTE | 2021-08-02 12:31 | PC.NURSE ---
pt reports that she needed to leave after receiving a cll that her sister fell at home. encouraged to return if s/s merited such
--- NOTE | 2021-08-02 12:31 | PC.NURSE ---
Patient walked out of ED stating I have to leave because my sister had a fall at home. patient walked out without difficulty and in no distress.
--- NOTE | 2021-08-02 13:15 | ED.FALL ---
HPI - Fall General Chief Complaint: Fall Stated Complaint: Fall Yesterday, Back Pain Time Seen by Provider: 08/02/21 11:55 Source: patient Mode of arrival: ambulatory Limitations: no limitations History of Present Illness HPI Narrative: 80-year-old female presenting to the emergency department for evaluation of back pain. Patient states that she was walking her dogs and she had a mechanical fall causing her to fall backward and landed flat on her back. Patient states that she did injure her thoracic spine and did strike her head on the ground. Patient denies any loss of consciousness. Related Data Allergies Allergy/AdvReac Type Severity Reaction Status Date / Time tetracycline Allergy Unknown Unknown Verified 01/08/21 07:04 Review of Systems Review of Systems: CONSTITUTIONAL: See HPI EYES: Denies visual changes, redness, or discharge. ENT: Denies rhinorrhea, congestion, sore throat, or otalgia. CARDIOVASCULAR: Denies chest pain, palpitations, or edema. RESPIRATORY: Denies cough or dyspnea. GASTROINTESTINAL: Denies abdominal pain, nausea, vomiting, or diarrhea. GENITOURINARY: Denies dysuria or hematuria. SKIN: Denies rash or itching. MUSCULOSKELETAL: Pain at thoracic and lumbar spine NEUROLOGIC: Headache but denies any associated numbness or weakness PMFSH Past Medical History Medical History Arthritis Chronic obstructive pulmonary disease Erosive osteoarthritis of hands, bilateral Essential (primary) hypertension MDD (major depressive disorder), recurrent episode, moderate Mixed hyperlipidemia Family History Family History Mother Patient's mother is , Onset Age: 87 Sibling Patient's brother is , Onset Age: 67 Father Cerebrovascular accident, Onset Age: 80 Social History Social History Smoking status: Former smoker Smoking end date: 03/20/17 Alcohol intake: never Gender identity (if verbalized by the patient): Female Exam Narrative: APPEARANCE: Well appearing HEAD: normocephalic, atraumatic. EYES: PERRLA/EOMI, conjunctivae clear. NOSE: Normal no drainage EARS:TMS clear with good light reflex. THROAT: Pharynx clear, no exudate. NECK: Supple. No adenopathy, no masses. RESPIRATORY: Airway patent, respirations nonlabored. Clear to auscultation bilaterally, no rales, rhonchi, wheezing. CARDIOVASCULAR: Regular rate and rhythm without murmurs rubs or gallops. ABDOMINAL: Soft, nontender, nondistended, normal bowel sounds MUSCULOSKELETAL: Moves all other extremities without issue. Thoracic and lumbar tenderness to palpation. No step-offs, no deformities NEURO: Alert. Cranial nerves II through XII intact. Grossly intact SKIN: Warm, dry. Normal Color Course Course Emergency Course: Patient left after evaluation and prior to imaging. Vital Signs Vital signs: Vital Signs Temperature 97.7 F 08/02/21 10:36 Pulse Rate 70 08/02/21 10:36 Respiratory Rate 16 08/02/21 10:36 Blood Pressure 147/94 H 08/02/21 10:36 Pulse Oximetry 97 08/02/21 10:36 Temperature 97.7 F 08/02/21 10:36 Pulse Rate 70 08/02/21 10:36 Respiratory Rate 16 08/02/21 10:36 Blood Pressure 147/94 H 08/02/21 10:36 Pulse Oximetry 97 08/02/21 10:36 Discharge Plan Discharge Clinical Impression: Back pain Patient Disposition: Elopement After Seen by Prov Prescriptions: No Action diclofenac sodium [Voltaren Arthritis Pain] 1 % gel 2 g topical QID Qty: 100 RF: 6 diclofenac sodium [Arthritis Pain (diclofenac)] 1 % gel 2 g topical QID Qty: 100 RF: 0 acetaminophen-codeine 300-15 mg tablet 1 tablet PO Q8H PRN (Reason: pain) Qty: 7 RF: 0 cephalexin 500 mg capsule 500 mg PO Q8H 5 Days Qty: 15 RF: 0 sulfamethoxazole-trimethoprim [Bactrim DS] 800-160 mg tablet 1 tablet PO Q12
== END 2021-08-02 12:35 | disposition left against medical advice (07) ==
PROVIDERS: Emergency Provider Emergency Medicine; PCP Family Medicine
DX: S29.9XXA Unspecified injury of thorax, initial encounter (principal); J44.9 Chronic obstructive pulmonary disease, unspecified; M19.042 Primary osteoarthritis, left hand; M19.041 Primary osteoarthritis, right hand; E78.2 Mixed hyperlipidemia; M19.90 Unspecified osteoarthritis, unspecified site; Z87.891 Personal history of nicotine dependence; Y93.K1 Activity, walking an animal; W18.39XA Other fall on same level, initial encounter
CPT/HCPCS: 99281